=== PATIENT | female | born 1990 | race Caucasian/White ===

== ENCOUNTER 2017-06-01 23:01 | Observation (INO) | payer OTHER ==
[~2017-06-01] VITALS: Ht 170.2 cm; Wt 113.0 kg
[~2017-06-01 23:01] MED LIST: ALBUTEROL0.83 MG/ML IH; CLARITIN D TAB1 TAB PO
[2017-06-01 23:36] LABS: BASO # 0.1 (0.0-0.2); BASO % 0.4 % (0.0-2.0); EOS # 0.1 (0.0-0.7); EOS % 0.4 % (0-4.0); GRAN # 8.2 (1.4-6.5); GRAN % 60.7 % (42.2-75.2); HEMOGLOBIN 12.1 g/dl (12.5-16.0); LYMPH # 4.2 (1.2-3.4); LYMPH % 30.8 % (20.0-51.0); MEAN CELL VOLUME 84 fl (80.0-100.0); MEAN CORPUSCULAR HEMOGLOBIN 28 pg (27.0-31.0); MEAN CORPUSCULAR HGB CONC 33 g/dl (33.0-37.0); MEAN PLATELET VOLUME 9.1 fl (7.4-10.4); MONO % 7.3 % (1.7-9.3); PLATELET COUNT 387 K/mm3 (130-400); RED BLOOD COUNT 4.32 M/mm3 (4.10-5.30); REDCELL DISTRIBUTION WIDTH-CV 13.2 % (11.5-14.5); WHITE BLOOD COUNT 13.6 K/mm3 (4.8-10.8)
[2017-06-01 23:37] LABS: HEMATOCRIT 36.2 % (37.0-47.0)
[2017-06-01 23:45] LABS: ALBUMIN 4.2 gm/dL (3.5-5.0); BILIRUBIN,TOTAL 0.5 mg/dL (0.0-1.0); CALCIUM 9.2 mg/dL (8.4-10.2); CREATININE, serum 0.85 mg/dL (0.52-1.25); POTASSIUM 4.1 mmol/L (3.4-5.0); TOTAL PROTEIN 7.7 gm/dL (6.4-8.2)
[2017-06-02] VITALS (11 sets, daily range): BP systolic 106–132; BP diastolic 42–68; PULSE 59–84; TEMP 97.7–98.2
[2017-06-02 01:18] LABS: PH 6 (5-8); SQUAMOUS EPITHELIAL 0-2 /hpf; URINE APPEARANCE Clear; URINE BACTERIA Rare /hpf; URINE BILIRUBIN Negative (NEGATIVE); URINE BLOOD 1+ (NEGATIVE); URINE COLOR Straw; URINE GLUCOSE Negative (NEGATIVE); URINE KETONE Negative (NEGATIVE); URINE RBC 0-2 /hpf; URINE UROBILINOGEN Negative (NEGATIVE); URINE WBC 0-2 /hpf
== END 2017-06-02 19:05 | disposition home or self-care (01) ==
LOC: COL.ER 23:01 → SURG 06-02 00:19
PROVIDERS: Emergency Medicine
DX: K35.80 Unspecified acute appendicitis (principal)
CPT/HCPCS: G0378; J0330; J1100; J1170; J1885; J2405; J2543; J2704; J2710; J2765; J3010; J7030; J7050; Q9967

== ENCOUNTER → 2017-12-11 | Outpatient (CLI) | payer BC | LOC: COL.PUL 12:48 | DX: J45.990 Exercise induced bronchospasm (principal) | CPT/HCPCS: J7674 ==